=== PATIENT | female | born 1995 | race Caucasian/White ===

== ENCOUNTER 2016-12-11 21:11 | Emergency (ER) | payer OTHER ==
[2016-12-12 00:05] VITALS: BP 103/74
== END 2016-12-12 00:05 | disposition home or self-care (01) ==
LOC: ED 21:11
DX: G89.29 Other chronic pain (principal); M54.6 Pain in thoracic spine; R03.0 Elevated blood-pressure reading, without diagnosis of hypertension
CPT/HCPCS: J1885